=== PATIENT | female | born 1940 | race Caucasian/White ===

== ENCOUNTER → 2018-03-26 | Outpatient (CLI) | payer OTHER, BC ==
[~2018-03-26] MED LIST: CHOL100010 PO; DICY10CA55 PO; DOXY100T PO; LEVO100T PO; ONDA4TAB46 PO; PANT40TA PO; PROB1CAP27 PO
--- NOTE | 2018-03-26 16:56 | DIAGNOSTIC IMAGING REPORT ---
R KNEE 3 VIEWS CLINICAL HISTORY: 77 years-old Female presenting with B/L KNEE PAIN. TECHNIQUE: Frontal view of the bilateral knees in standing position was obtained as well as bilateral sunrise, tunnel, and crosstable lateral views. COMPARISON: 08/20/2006. FINDINGS: Osteopenia suspected. Medial and lateral joint spaces are preserved and symmetric. Mild osteophytosis evident in the bilateral lateral compartments as well as patellofemoral compartments. Significant joint space loss in the bilateral lateral patellofemoral articulations with [id number] appearance. Trace knee joint effusions may be present bilaterally. Change allowing for osteopenia, no displaced fracture or malalignment. IMPRESSION: 1. Symmetric degenerative changes in the lateral and patellofemoral compartments. Severe joint space loss in the lateral patellofemoral articulations. This is slightly progressed since the prior exam. Electronically signed by: Chester Acevedo M.D. 03/26/2018 4:54 PM Dictated Date/Time: 03/26/2018 4:51 PM
--- NOTE | 2018-03-27 07:32 | DIAGNOSTIC IMAGING REPORT ---
R KNEE 3 VIEWS CLINICAL HISTORY: 77 years-old Female presenting with B/L KNEE PAIN. TECHNIQUE: Frontal view of the bilateral knees in standing position was obtained as well as bilateral sunrise, tunnel, and crosstable lateral views. COMPARISON: 08/20/2006. FINDINGS: Osteopenia suspected. Medial and lateral joint spaces are preserved and symmetric. Mild osteophytosis evident in the bilateral lateral compartments as well as patellofemoral compartments. Significant joint space loss in the bilateral lateral patellofemoral articulations with [id number] appearance. Trace knee joint effusions may be present bilaterally. Change allowing for osteopenia, no displaced fracture or malalignment. IMPRESSION: 1. Symmetric degenerative changes in the lateral and patellofemoral compartments. Severe joint space loss in the lateral patellofemoral articulations. This is slightly progressed since the prior exam. Electronically signed by: Chester Acevedo M.D. 03/26/2018 4:54 PM Dictated Date/Time: 03/26/2018 4:51 PM
--- NOTE | 2018-03-27 07:32 | DIAGNOSTIC IMAGING REPORT ---
R KNEE 3 VIEWS CLINICAL HISTORY: 77 years-old Female presenting with B/L KNEE PAIN. TECHNIQUE: Frontal view of the bilateral knees in standing position was obtained as well as bilateral sunrise, tunnel, and crosstable lateral views. COMPARISON: 08/20/2006. FINDINGS: Osteopenia suspected. Medial and lateral joint spaces are preserved and symmetric. Mild osteophytosis evident in the bilateral lateral compartments as well as patellofemoral compartments. Significant joint space loss in the bilateral lateral patellofemoral articulations with [id number] appearance. Trace knee joint effusions may be present bilaterally. Change allowing for osteopenia, no displaced fracture or malalignment. IMPRESSION: 1. Symmetric degenerative changes in the lateral and patellofemoral compartments. Severe joint space loss in the lateral patellofemoral articulations. This is slightly progressed since the prior exam. Electronically signed by: Chester Acevedo M.D. 03/26/2018 4:54 PM Dictated Date/Time: 03/26/2018 4:51 PM
== END | disposition home or self-care (01) ==
LOC: C.RDSM 15:55
PROVIDERS: ATTEND Physician Assistant
DX: R52 Pain, unspecified (principal)

== ENCOUNTER → 2018-06-11 | Outpatient (CLI) | payer OTHER, BC ==
--- NOTE | 2018-06-11 14:20 | DIAGNOSTIC IMAGING REPORT ---
LUMBAR SPINE RADIOGRAPHS CLINICAL HISTORY: Low back pain. COMPARISON: CT of the abdomen and pelvis April 06, 2016. FINDINGS: The bowel gas pattern is normal. There are cholecystectomy clips. Chronic deformity of the right iliac bone is noted. Vertebral body heights are maintained. There is no lumbar spine fracture or suspicious lesion. Disc spaces are preserved. There is moderate lower lumbar spine facet arthrosis. IMPRESSION: 1. No lumbar spine fracture or subluxation. 2. 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 Electronically signed by: Rishi Garcia M.D. 06/11/2018 2:19 PM Dictated Date/Time: 06/11/2018 2:17 PM
--- NOTE | 2018-06-11 14:21 | DIAGNOSTIC IMAGING REPORT ---
PELVIS 1 OR 2 VIEWS CLINICAL HISTORY: Low back pain. COMPARISON STUDY: CT of the abdomen and pelvis April 06, 2016. FINDINGS: Sacroiliac joints and symphysis pubis are intact. Chronic deformity of the right iliac bone is noted. There is no acute fracture within the pelvis or the hips. There is mild osteophytosis of both hips. Pelvic calcifications reflect phleboliths. IMPRESSION: 1. No acute fracture within the pelvis or hips. 2. Mild arthritis of the hips. Electronically signed by: Rishi Garcia M.D. 06/11/2018 2:20 PM Dictated Date/Time: 06/11/2018 2:19 PM
== END | disposition home or self-care (01) ==
LOC: C.RDSM 08:11
PROVIDERS: ATTEND Orthopaedic Surgery Sports Medicine
DX: M47.816 Spondylosis without myelopathy or radiculopathy, lumbar region (principal); Z88.1 Allergy status to other antibiotic agents; Z88.8 Allergy status to other drugs, medicaments and biological substances; Z88.6 Allergy status to analgesic agent